=== PATIENT | female | born 1940 | race Caucasian/White ===

== ENCOUNTER → 2018-10-17 | Outpatient (CLI) | payer MEDICARE, BC, OTHER ==
[~2018-10-17] MED LIST: ALDACTIZIDE 25-1 TAB PO; ASPIRIN ADULT L81 M1 PO; ASPIRIN80 MG PO; ASPIRIN81 M1; ASPIRIN81 M1 PO; ATIVAN1 MG PO; B12,B-12,B 12500 MC1 PO; BIAXIN500 MG PO; CARVEDILOL12.5 MG PO; CLARITIN10 MG PO; COREG12.5 MG; COREG12.5 MG PO; CYMBALTA60 MG; CYMBALTA60 MG PO; Coumadin5 MG PO; FOSAMAX70 MG; IRON; LIPITOR80 MG; LIPITOR80 MG PO; LISINOPRIL10 MG; LISINOPRIL20 MG PO; MEDROL DOSEPAK4 MG PO; PERCOCET 325 MG1 TA2 PO; PERCOCET 325 MG1 TA4 PO; PROTONIX40 M1 PO; PROTONIX40 MG; PROTONIX40 MG PO; REGLAN10 MG PO; SOMA350 MG PO; SPIRIVA18 MCG PO; VICODIN 500 MG-1 TAB PO; VITAMIN B121000 MC2; VITAMIN C500 MG; VITAMIN D32000 IU; WALKER; ZESTRIL20 MG PO
== END | disposition home or self-care (01) ==
LOC: MRI 13:00
DX: I65.23 Occlusion and stenosis of bilateral carotid arteries (principal); Z72.0 Tobacco use; I10 Essential (primary) hypertension; R42 Dizziness and giddiness; R55 Syncope and collapse

== ENCOUNTER 2020-05-08 13:58 | Inpatient (IN) | payer MEDICARE, BC, OTHER ==
[~2020-05-08] VITALS: Ht 165.1 cm; Wt 81.6 kg
[2020-05-08] VITALS (19 sets, daily range): BP systolic 80–161; BP diastolic 41–82
[2020-05-08 15:09] LABS: HEMATOCRIT 24.4 % (37.0-47.0); MEAN CELL VOLUME 74.2 fl (81.0-99.0); MEAN CORPUSCULAR HGB 20.7 pg (27.0-31.0); MEAN CORPUSCULAR HGB CONC 27.9 g/dl (33.0-37.0); MEAN PLATELET VOLUME 8.9 fl (9.6-12.3); NUCLEATED RED BLOOD CELL 0.4 % (0.0-0.0); PLATELET COUNT AUTOMATED 207 10*3/uL (130-400); RED BLOOD COUNT 3.29 10*6/uL (4.10-5.10); RED CELL DISTRI WIDTH 17.9 % (0-14.5); WHITE BLOOD COUNT 5.4 10*3/uL (4.8-10.8)
--- NOTE | 2020-05-08 15:12 | NUR ---
LIZA, GRANDDAUGHTER, CELLPHONE: [phone]
[2020-05-08 15:21] LABS: ACT PARTIAL THROMBO TIME 21.6 SECONDS (20.0-32.1)
[2020-05-08 15:27] LABS: ALKALINE PHOSPHATASE 48 U/L (45-117); BUN 19 mg/dl (7-24); CHLORIDE 100 mmol/L (98-107); CREATININE 1.03 mg/dL (0.55-1.02); LIPASE 88 U/L (73-393); MICROCYTOSIS SLIGHT; PLATELET SUFFICIENCY NORMAL (NORMAL); POTASSIUM 3.5 mmol/L (3.5-5.1); SGOT/AST 14 IU/L (3-35); SGPT/ALT 11 U/L (12-78); SODIUM 137 mmol/L (136-145); TOTAL CELLS COUNTED 100 #CELLS; TOTAL PROTEIN 7.2 gm/dL (6.4-8.2)
[2020-05-08 15:28] LABS: TROPONIN I < 0.015 ng/ml (<0.045)
--- NOTE | 2020-05-08 18:15 | NUR ---
PATIENT REFUSING TO HAVE TOE PHOTOGRAPHED D/T PAIN
--- NOTE | 2020-05-08 18:17 | NUR ---
BLOOD TRANSFUSION TITRATED TO 125 ML/HR
--- NOTE | 2020-05-08 19:04 | NUR ---
SURGERY ON UNIT FOR PATIENT TRANSFER TO SURGERY
--- NOTE | 2020-05-08 21:54 | NUR ---
A 79, admitted to 4E, under the services of ISREAL Mercedes DO with a diagnosis of ANEMIA, FRACTURE OF LEFT GREAT TOE. Chief complaint is FALL. Patient arrived via bed from ER. Monitor applied. Initial assessment completed. Vital signs taken and recorded. ISREAL MERCEDES DO notified of admission to the unit. Orders received. See assessment for past medical history, medications and allergies. Patient and/or family oriented to unit. [facility] visitation policy reviewed. Clothing/patient valuable form completed. JACQUELINE DAVIDSON
--- NOTE | 2020-05-08 22:00 | NUR ---
PT IS REFUSING NURSE TO CHECK FOR ANY ADDITIONAL WOUNDS. STATES THAT SHE IS HURTING TOO MUCH. WILL TRY IN THE MORNING
[2020-05-08] MEDS ORDERED: BUSPIRONE HCL10 MG PO (22:12)
[2020-05-08] MEDS ORDERED: CARAFATE1 G1 PO (22:15)
[2020-05-08] MEDS ORDERED: TRELEGY ELLIPT1 EACH INH (22:16)
[2020-05-08] MEDS ORDERED: QUETIAPINE FUMA50 M1 PO (22:17)
[2020-05-08] MEDS ORDERED: TIZANIDINE HCL4 MG PO (22:18)
--- NOTE | 2020-05-08 23:00 | NUR ---
PT SLEEPING COMFORTABLY AT THIS TIME. O2 INTACT, CALL LIGHT IN REACH
[2020-05-08 23:50] LABS: BASO % 0.3 % (0.0-1.0); EOS % 0.4 % (1.0-4.0); HEMATOCRIT 31.1 % (37.0-47.0); LYMPH # 1.4 10*3/uL (1.3-4.4); LYMPH % 18.9 % (27.0-41.0); MEAN CORPUSCULAR HGB CONC 28.9 g/dl (33.0-37.0); MEAN PLATELET VOLUME 8.9 fl (9.6-12.3); MONO # 0.4 10*3/uL (0.1-1.0); MONO % 5.2 % (3.0-9.0); NEUT # 5.4 10*3/uL (2.3-7.9); NEUT % 74.9 % (47.0-73.0); NUCLEATED RED BLOOD CELL 0.3 % (0.0-0.0); PLATELET COUNT AUTOMATED 173 10*3/uL (130-400); RED BLOOD COUNT 4.09 10*6/uL (4.10-5.10); RED CELL DISTRI WIDTH 17.3 % (0-14.5); WHITE BLOOD COUNT 7.2 10*3/uL (4.8-10.8)
[2020-05-09] VITALS: BP 119/56
--- NOTE | 2020-05-09 01:20 | NUR ---
Pt found on a 3L simple face mask. Pt immediately switched to a 3L NC because a simple mask must run on 6L-10L. SpO2 95%. Pt was arousable.
--- NOTE | 2020-05-09 01:55 | NUR ---
MORPHINE GIVEN PER PT REQUEST FOR 10/10 PAIN IN LEFT GREAT TOE. WILL MONITOR
--- NOTE | 2020-05-09 02:55 | NUR ---
PER PT, MORPHINE HELPED A LITTLE
--- NOTE | 2020-05-09 04:29 | NUR ---
PT STATES THAT HER TOE IS STILL HURTING BAD. NORCO GIVEN PER ORDER. WILL MONITOR
--- NOTE | 2020-05-09 04:49 | NUR ---
PT VOMITING AT THIS TIME. ZOFRAN GIVEN PER ORDER. WILL MONITOR
--- NOTE | 2020-05-09 05:29 | NUR ---
NORCO AND ZOFRAN APPEAR EFFECTIVE, PT ASLEEP
--- NOTE | 2020-05-09 06:00 | NUR ---
IN TO ASSESS PT. AT THIS TIME, PT STATES SHE IS IN TOO MUCH PAIN AND TOO NAUSEOUS FOR NURSE TO CHECK FOR WOUNDS.
[2020-05-09 06:05] LABS: BASO % 0.3 % (0.0-1.0); EOS # 0.1 10*3/uL (0.0-0.4); EOS % 0.9 % (1.0-4.0); HEMATOCRIT 31.5 % (37.0-47.0); LYMPH # 1.1 10*3/uL (1.3-4.4); LYMPH % 13.5 % (27.0-41.0); MEAN CELL VOLUME 74.5 fl (81.0-99.0); MEAN CORPUSCULAR HGB 21.7 pg (27.0-31.0); MEAN CORPUSCULAR HGB CONC 29.2 g/dl (33.0-37.0); MEAN PLATELET VOLUME 9.3 fl (9.6-12.3); MONO # 0.5 10*3/uL (0.1-1.0); NEUT # 6.2 10*3/uL (2.3-7.9); NEUT % 78.9 % (47.0-73.0); NUCLEATED RED BLOOD CELL 0.1 10*3/uL (0.0-0.0); NUCLEATED RED BLOOD CELL 0.6 % (0.0-0.0); PLATELET COUNT AUTOMATED 180 10*3/uL (130-400); RED BLOOD COUNT 4.23 10*6/uL (4.10-5.10); RED CELL DISTRI WIDTH 17.3 % (0-14.5); WHITE BLOOD COUNT 7.8 10*3/uL (4.8-10.8)
[2020-05-09 06:24] LABS: ACT PARTIAL THROMBO TIME 23.5 SECONDS (20.0-32.1)
[2020-05-09 06:25] LABS: BUN 13 mg/dl (7-24); CHLORIDE 102 mmol/L (98-107); SODIUM 134 mmol/L (136-145)
[2020-05-09 06:29] LABS: ALKALINE PHOSPHATASE 56 U/L (45-117); CREATININE 0.72 mg/dL (0.55-1.02); SGOT/AST 15 IU/L (3-35); SGPT/ALT 10 U/L (12-78); TOTAL PROTEIN 7.1 gm/dL (6.4-8.2)
--- NOTE | 2020-05-09 06:40 | NUR ---
PT MEDICATED WITH MORPHINE FOR COMPLAINTS OF 10/10 PAIN IN LEFT FOOT
--- NOTE | 2020-05-09 07:00 | NUR ---
ARRIVED ON SHIFT, REPORT RECEIVED FROM OFFGOING NURSE, ASSUMED CARE OF PATIENT.
[2020-05-09 07:19] LABS: VITAMIN D, 25-HYDROXY 9.1 ng/mL (30-100)
--- NOTE | 2020-05-09 07:30 | NUR ---
ARRIVED ON SHIFT, INTRODUCED SELF TO PATIENT, BED IN LOW POSITION, WHEEL LOCKS ENGAGED, SIDE RAILS UP X 2 FOR TURNING AND REPOSITIONING, PATIENT REFUSES TO TURN, R/T PAIN. BED ALARM CHOIR ACCOMPANIST LIGHT WITHIN REACH, NO NEEDS VOICED AT THIS TIME WHITE BOARD UPDATED.
[2020-05-09 08:00] VITALS: BP 139/61
--- NOTE | 2020-05-09 08:11 | NUR ---
CALL PLACED TO DR. LITTLE, ADVISED OF CONSULT.
--- NOTE | 2020-05-09 08:20 | NUR ---
PATIENT CONTINUES TO C/O OF PAIN, DESPITE HAVING NORCO AND MORPHINE, SHE VERSED THE NORCO DOESNT HELP AT ALL AND THE MORPHINE ONLY WORKS X 15 MINUTES, CALL PLACED TO HOSPITALIST LINE SPOKE TO DR. DUNN, SHE VERSED SHE WOULD CHANGE MEDICATION.
--- NOTE | 2020-05-09 08:32 | NUR ---
ONE TIME DOSE DILAUDID GIVEN PER ORDERS.
--- NOTE | 2020-05-09 09:32 | NUR ---
PATIENT REPORTS THAT DILAUDID WAS HELPFUL, BUT STILL HAVING PAIN.
--- NOTE | 2020-05-09 10:32 | NUR ---
PERCOCET GIVEN FOR LEFT FOOT PAIN 05/03
[2020-05-09] MEDS ORDERED: CARVEDILOL3.125 MG PO (11:06)
[2020-05-09] MEDS ORDERED: ALDACTAZIDE 251 EACH PO (11:12)
--- NOTE | 2020-05-09 11:30 | NUR ---
IN TO SEE PATIENT TO REASSESS PERCOCET GIVEN X 1 HOUR AGO, PATIENT WRETCING, AND HAD YELLOW/GREEN LIQUID EMESIS,MEDICATED WITH ZOFRAN ORDERED, NOTIFIED MONA FRIAS, OF EMESIS AND PATIENTS, ONGOING C/O PAIN. SHE VERSED SHE WILL ORDER ROUTINE ZOFRAN.
[2020-05-09 12:00] VITALS: BP 119/56
[2020-05-09 13:21] LABS: CLARITY CLEAR (CLEAR); COLOR YELLOW (YELLOW)
[2020-05-09 13:22] LABS: BILIRUBIN NEGATIVE (NEGATIVE); BLOOD 1+ (NEGATIVE); GLUCOSE NEGATIVE (NEGATIVE); KETONE TRACE (NEGATIVE); LEUKO ESTERASE 1+ (NEGATIVE); NITRITE NEGATIVE (NEGATIVE); PH 6.5 (5.0-9.0); SPECIFIC GRAVITY 1.015 (1.005-1.030); UROBILINOGEN 0.2 E.U./dl (0.2-1.0)
--- NOTE | 2020-05-09 13:32 | NUR ---
Shift chart check completed.
[2020-05-09 13:56] LABS: BACTERIA TRACE; EPITHELIAL CELLS 0-2; WBC 0-2 wbc/hpf (0-5)
[2020-05-09 16:00] VITALS: BP 134/54
--- NOTE | 2020-05-09 16:48 | NUR ---
PATIENT C/O OF LEFT FOOT PAIN AND HEADACHE MEDICATED WITH PERCOCET ORDERED, UPDATED WHITE BOARD.
--- NOTE | 2020-05-09 19:00 | NUR ---
REPORT RECEIVED. PT LYING IN BED WITH EYES CLOSED. NO S/S OF DISTRESS. CALL LIGHT IN REACH
--- NOTE | 2020-05-09 19:53 | NUR ---
24 HR chart check completed.
[2020-05-09 20:00] VITALS: BP 125/58
--- NOTE | 2020-05-09 22:15 | NUR ---
MORPHINE GIVEN PER ORDER FOR COMPLAINTS OF 10/10 PAIN IN LEFT FOOT. WILL MONITOR
--- NOTE | 2020-05-09 23:15 | NUR ---
PER PT, MORPHINE HELPED A LITTLE BIT FOR PAIN IN FOOT
--- NOTE | 2020-05-09 23:38 | NUR ---
SCHEDULED ZOFRAN AND ULTRAM GIVEN FOR PAIN AND NAUSEA. WILL MONITOR
[2020-05-10] VITALS (9 sets, daily range): BP systolic 83–168; BP diastolic 53–79
--- NOTE | 2020-05-10 00:30 | NUR ---
SCHEDULED ZOFRAN AND ULTRAM APPEAR EFFECTIVE, PT ASLEEP
--- NOTE | 2020-05-10 03:30 | NUR ---
PT ASLEEP, CALL LIGHT IN REACH
[2020-05-10 05:56] LABS: ALBUMIN 2.8 gm/dl (3.1-4.5); ALKALINE PHOSPHATASE 57 U/L (45-117); BUN 8 mg/dl (7-24); CHLORIDE 101 mmol/L (98-107); CREATININE 0.61 mg/dL (0.55-1.02); POTASSIUM 3.4 mmol/L (3.5-5.1); SGOT/AST 14 IU/L (3-35); SGPT/ALT 13 U/L (12-78); SODIUM 132 mmol/L (136-145); TOTAL PROTEIN 7.2 gm/dL (6.4-8.2)
[2020-05-10 06:13] LABS: BASO % 0.5 % (0.0-1.0); EOS # 0.1 10*3/uL (0.0-0.4); EOS % 0.7 % (1.0-4.0); HEMATOCRIT 31.7 % (37.0-47.0); LYMPH # 1.2 10*3/uL (1.3-4.4); LYMPH % 13.2 % (27.0-41.0); MEAN CELL VOLUME 74.2 fl (81.0-99.0); MEAN CORPUSCULAR HGB CONC 29.7 g/dl (33.0-37.0); MEAN PLATELET VOLUME 9.4 fl (9.6-12.3); MONO # 0.7 10*3/uL (0.1-1.0); MONO % 7.8 % (3.0-9.0); NEUT # 6.9 10*3/uL (2.3-7.9); NEUT % 77.3 % (47.0-73.0); NUCLEATED RED BLOOD CELL 0.2 % (0.0-0.0); PLATELET COUNT AUTOMATED 191 10*3/uL (130-400); RED BLOOD COUNT 4.27 10*6/uL (4.10-5.10); RED CELL DISTRI WIDTH 18.1 % (0-14.5); WHITE BLOOD COUNT 8.9 10*3/uL (4.8-10.8)
--- NOTE | 2020-05-10 07:30 | NUR ---
PT RESTING IN BED. VOICES NO CONCERNS AT THIS TIME. RESPS EASY AND NON LABORED. NO S/S OF DISTRESS NOTED. VSS. WHITE BOARD UPADTED. POC DISCUSSED W PT. A/O X3. LUMBEE. L GREAT TOE DRESSING C/D/I, PT DENIES ANY NUMBNESS/TINGLING IN EXREMITY. WILL CONTINUE TO MONITOR. CALL LIGHT WITHIN REACH.
--- NOTE | 2020-05-10 09:41 | NUR ---
FAMILY UPDATED ON POC. QUESTIONS ANSWERED.
--- NOTE | 2020-05-10 10:43 | NUR ---
PT TAKEN DOWN FOR EDG
--- NOTE | 2020-05-10 10:45 | NUR ---
OT NOTE Occupational therapy order received and chart reviewed. Patient out of the room at this time for her EGD. Will check back at a later date for completion of an OT evaluation. Thank you. Paula Ac, OTR/L
--- NOTE | 2020-05-10 10:58 | NUR ---
PHYSICAL THERAPY Eval received chart reviewed attempted to see pt for assessment unavailable at this time as out of room for procedure/EGD. Will follow Jojo Ramsey PT
--- NOTE | 2020-05-10 13:51 | NUR ---
PT BACK FROM EGD. VSS. RESPS EASY AND NON LABORED. WILL CONTINUE TO MONITOR.
--- NOTE | 2020-05-10 14:10 | NUR ---
Occupational Therapy evaluation completed on four with full evaluation to follow. Recommend occupational therapy per plan of care and SNF upon discharge. Spoke with case management following the OT evaluation to discuss patient's functional status and discharge plans. Patient was unable to complete a full sit/stand from the EOB and maintain LLE NWB. Patient is adamantly refusing SNF and home health services stating she will return home with family with no further rehab. Pending patient's progression with functional activity, patient may require an ambulance for returning home, possible julia lift, possible slide board pending transfer progression, a FWW, and a BSC. Patient stating she also does not have a w/c because it does not "fit" into the home. Patient also has 5 steps to enter the home. Will continue to address patient's functional activity with ADLs and transfers. Thank you for the referral. Paula Ac, OTR/L
--- NOTE | 2020-05-10 15:09 | NUR ---
Shirt Folder in to talk to patient. Patient states lives at HOME with DAUGHTER AND GRANDSON. There are 5 steps in the home. [facility]ician[facility] none at present Patient's level of ADLs: MODERATE ASSIST Patient has working utilities: all working DME: none Follow-up physician's appointment after d/c: will be made by [facility] nurse director up discharge Does patient want to access PORTAL?: no Discharge plan discussed with patient, she states she lives at home with her daughter and grandson, she stated she was getting around fine until she had a fall at home, discussed with her rehab suggesting she go to a short term snf for 5 days of rehab and 24 hour care prior to returning home, she stated she was not going to any facility that she is returning home when discharged, discussed with her not being able to care for herself and a short term skilled would help her become independent and be able to care for herself at home, she insisted she was returning home, she stated she would be willing for home health to follow her at home, asked if it would be ok for case management to talk with patient's daughter regarding discharge plans, patient was agreeable in talking with her daughter, case management will follow. CHIDI PITTMAN
--- NOTE | 2020-05-10 15:33 | NUR ---
PHYSICAL THERAPY Physical Therapy evaluation completed on 4th floor with full evaluation to follow. Recommend physical therapy per plan of care and SNF upon discharge if refused pt will require 24hr care w full services. Thank you for this referral. Artie Gutiérrez SPT Jojo Ramsey PT
--- NOTE | 2020-05-10 15:50 | NUR ---
PT C/O 5/10 THROBBING LEFT LEG PAIN. MEDICATED PER ORDER. WILL MONITOR FOR RELIEF. RESPS EASY AND NON LABORED. RESTING IN BED WATCHING TV. CALL LIGHT WITHIN REACH.
--- NOTE | 2020-05-10 16:02 | NUR ---
PHYSICAL THERAPY Physical Therapy evaluation completed on 4th floor with full evaluation to follow. Recommend physical therapy per plan of care and SNF upon discharge. However currently pt is refusing any therapy/rehab at this time. Spoke with Case Mangement reg concerns as unable to stand maintain NWB of LLE. Pt has 5 steps to enter home would require ambulance service for entrance. Pending progress may need w/c,hospital bed,slide board,FWW (only has rollator) or julia however limited assessment due to pain and nausea (pt dry heaving with activity). Pt states she has no room for w/c or equipment. Will continue to assess/monitor level of activity and assist. Thank you for this referral. Jojo Ramsey PT
--- NOTE | 2020-05-10 16:18 | NUR ---
DR ALVES ANSWERING SERVICE NOTIFIED OF NEW CONSULT
--- NOTE | 2020-05-10 16:45 | NUR ---
MEDICATION EFFECTIVE PER PT
--- NOTE | 2020-05-10 23:43 | NUR ---
PATIENT RESTING IN BED WITH NO NEEDS MADE. DENIES NAUSEA AT THIS TIME. REFUSING ZOFRAN. PATIENT CONFUSED TO PLACE WHEN SHE WOKE UP. REORIENTED. BED ALARM ON. BED IN LOWEST POSITION, CALL LIGHT IN REACH
[2020-05-11] VITALS: BP 111/64
--- NOTE | 2020-05-11 01:25 | NUR ---
PATIENT RESTING IN BED WITH NO S/S OF DISTRESS. RESPS EASY AND REGULAR. BED IN LOWEST POSITION, BED ALARM ON, CALL LIGHT IN REACH
--- NOTE | 2020-05-11 06:02 | NUR ---
PATIENT REFUSING ZOFRAN. DENIES NEEDS. ENCOURAGED TO TURN COUGH AND DEEP BREATH. BED ALARM ON, BED IN LOW POSITION, CALL LIGHT IN REACH
[2020-05-11 07:51] LABS: BASO % 0.5 % (0.0-1.0); EOS % 0.5 % (1.0-4.0); HEMATOCRIT 30.4 % (37.0-47.0); LYMPH # 1.1 10*3/uL (1.3-4.4); LYMPH % 18.6 % (27.0-41.0); MEAN CELL VOLUME 74.5 fl (81.0-99.0); MEAN CORPUSCULAR HGB 21.6 pg (27.0-31.0); MEAN CORPUSCULAR HGB CONC 28.9 g/dl (33.0-37.0); MEAN PLATELET VOLUME 9.5 fl (9.6-12.3); MONO # 0.6 10*3/uL (0.1-1.0); MONO % 9.7 % (3.0-9.0); NEUT # 4.3 10*3/uL (2.3-7.9); NEUT % 70.4 % (47.0-73.0); PLATELET COUNT AUTOMATED 175 10*3/uL (130-400); RED BLOOD COUNT 4.08 10*6/uL (4.10-5.10); RED CELL DISTRI WIDTH 18.1 % (0-14.5); WHITE BLOOD COUNT 6.1 10*3/uL (4.8-10.8)
--- NOTE | 2020-05-11 07:59 | NUR ---
PT RESTING IN BED. RESPS EASY AND NON LABORED. VSS. WHITE BOARD UPDATED. POC DISCUSSED PT. A/O X3. STATES HER LEFT FOOT IS ACHING 03/03. MEDICATED PER ORDER. WILL MONITOR FOR RELIEF. VOICES NO OTHER CONCERNS AT THIS TIME. CALL LIGHT WITHIN REACH. BED ALARM ON.
[2020-05-11 08:00] VITALS: BP 150/76
--- NOTE | 2020-05-11 08:00 | NUR ---
Called and spoke with patients daughter, Tamiko, with patients permission. Described that patient is NWB on left foot and therapy described a 2 person max assist to get out of bed. 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 She said she would be fine, she has herself, her and son and another relative up the street. she asked for [facility] with therapy and aides.
[2020-05-11 08:08] LABS: ALBUMIN 2.5 gm/dl (3.1-4.5); ALKALINE PHOSPHATASE 57 U/L (45-117); BUN 8 mg/dl (7-24); CHLORIDE 104 mmol/L (98-107); CREATININE 0.55 mg/dL (0.55-1.02); POTASSIUM 3.6 mmol/L (3.5-5.1); SGOT/AST 28 IU/L (3-35); SGPT/ALT 11 U/L (12-78); SODIUM 135 mmol/L (136-145); TOTAL PROTEIN 6.7 gm/dL (6.4-8.2)
--- NOTE | 2020-05-11 08:30 | NUR ---
MEDICATION EFFECTIVE PER PT
--- NOTE | 2020-05-11 09:29 | NUR ---
Patient was identified by wristband & . Participated with OBSTETRICS AND GYNECOLOGY PROFESSOR 1:1 x 15 minutes starting with supine to sit x Mod A x 2 to EOB. Pt performing grooming at EOB with set up. Pt also performed towel exercises while sitting at EOB after demonstration to enhance activity tolerance x 2 sets. Continue with OT POC. Gloria FANG/Agustina
--- NOTE | 2020-05-11 09:44 | NUR ---
PHYSICAL THERAPY Patient seen this am 1;1 for therapy visit and was supine in bed upon therapist arrival. Patient identified by name / and was very [place], voicing no new c/o's at this time. OT assistant elementary teacher was present this morning for observation as patient is NWB on L LE secondary to recent toe fracture. Patient educated on safe transfer technique and importance of maintaining NWB status prior to completing supine to sit EOB with MOD A x 2. Patient tolerated several minutes static EOB sit, SBA, then performed scooting ex, requiring multiple v/c's to improve technique / performance, including visual demonstration prior to transfer. Patient also completed sit to stand transfer, use of wh walker, MAX A, demonstrating initial slow rise with only 75% NWB L LE compliance thru heel only on first attempt. Patient able to complete second trial, improving static stand tolerance to 1 minute, MAX A initial rise then CGA, demonstrating "slouched" upright posture and 100% compliance with NWB status. Patient however fatigues quickly returned to supine in bed with MAX A. and remained in bed with call light, tray table, telephone, bed alarm for safety. Will continue per POC as tolerated, total treament time 14 minutes. Tony Alexander, HAND CIGAR MAKING SUPERVISOR
--- NOTE | 2020-05-11 11:14 | NUR ---
Patient and family requesting services through [facility] upon discharge. Contacted [facility] and faxed order/referral. Notified of possible discharge tomorrow.
[2020-05-11] MEDS ORDERED: CLEOCIN HCL150 MG PO (11:37)
[2020-05-11 12:00] VITALS: BP 140/80
--- NOTE | 2020-05-11 12:37 | NUR ---
Pt was seen in OT x 15 minutes beginning with supine to sit at EOB x Mod A x 2. At EOB, pt performed grooming and applying lotion for UEs with set up. Pt engaged in "towel exercises" to enhance toleration for simple ADLs with occasional rests. No complaints, OT in place & bed alarm activated for safety. Continue with OT POC. Gloria COLLINS
[2020-05-11] MEDS ORDERED: PERCOCET 7.5 MG-325 PO (12:52)
--- NOTE | 2020-05-11 13:44 | NUR ---
PHYSICAL THERAPY Patient was resting supine in bed this pm, half asleep when approached for second therapy visit. Patient identified by name / and reports feeling very tired with very low energy. Patient stated she was too weak to attempt EOB sit this afternoon, requesting to remaine in bed to rest. Patient promised to do better tommorrow and remained in bed with call light, tray table, telephone, bed alarm for safety. Will continue per POC as tolerated. Tony Alexander, PET CARE TECHNICIAN
--- NOTE | 2020-05-11 14:01 | NUR ---
PT RESTING IN BED. VOICES NO CONCERNS. RESPS EASY AND NON LABORED. ENCOURAGED TO COUGH AND DEEP BREATHE. STILL CONTINUES TO REFUSE TO TURN Q2H. WILL CONTINUE TO MONITOR.CALL LIGHT WITHIN REACH.
--- NOTE | 2020-05-11 14:20 | NUR ---
Hep Lock discontinued. Site asymptomatic. Pressure applied. Sterile dressing applied. KARLIE HOWELL
--- NOTE | 2020-05-11 14:21 | NUR ---
DUMONT CATHETER REMOVED. PT TOLERATED WELL. TIP INSPECTED AND INTACT. LUIS A CARE PROVIDED.
[2020-05-11 16:00] VITALS: BP 129/70
[2020-05-11 20:00] VITALS: BP 139/68
--- NOTE | 2020-05-11 20:58 | NUR ---
PATIENT RESTING IN BED WITH NO NEEDS MADE. ALERT AND ORIENTED. BED IN LOW POSITION, BED ALARM ON, CALL LIGHT IN REACH
[2020-05-12] VITALS: BP 135/72
--- NOTE | 2020-05-12 01:30 | NUR ---
PATIENT WAS ASSISTED TO BSC TO HELP WITH VOIDING. PATIENT DID VOID EVEN THOUGH SHE STATED SHE DID NOT HAVE TO PRIOR. WILL MONITOR
--- NOTE | 2020-05-12 06:00 | NUR ---
PATIENT REFUSES TO TURN Q2HR. IMPORTANCE/EDUCATION PROVIDED/ PATIENT STATED SHE WAS COMFORTABLY LAYING IN HER BACK AND DIDN'T WANT TO MOVE
[2020-05-12 08:00] VITALS: BP 123/57
--- NOTE | 2020-05-12 08:00 | NUR ---
PATIENT SLEEPING NO DISTRESS NOTED.
--- NOTE | 2020-05-12 09:00 | NUR ---
MELITA HAS ROUNDED AND PATIENT IS DISCHARGED TO HOME. IV REMOVED. PATIENT STATES HER DAUGHTER CAN GET HER AFTER 3 OR 4 PM.
--- NOTE | 2020-05-12 11:21 | NUR ---
PATIENT DISCHARGED TO HOME.
--- NOTE | 2020-05-13 07:52 | NUR ---
PHYSICAL THERAPY CO-SIGN I approve of the Physical Therapy notes written above. Jojo Ramsey PT
== END 2020-05-12 11:21 | disposition home health service (06) | DRG 503 ==
LOC: ED 13:58 → 4E 17:08 → EDHOLD 17:08 → 4E 17:36
PROVIDERS: Emergency Medicine; Family Medicine; Internal Medicine; Physician Assistant; Registered Nurse; ADMIT Internal Medicine
PROC: 0QSR04Z Reposition Left Toe Phalanx with Internal Fixation Device, Open Approach (ICD-10-PCS; principal; 2020-05-08)
PROC: 30233N1 Transfusion of Nonautologous Red Blood Cells into Peripheral Vein, Percutaneous Approach (ICD-10-PCS; principal; 2020-05-08)
PROC: 0SQQ0ZZ Repair Left Toe Phalangeal Joint, Open Approach (ICD-10-PCS; 2020-05-08)
PROC: 0DB68ZX Excision of Stomach, Via Natural or Artificial Opening Endoscopic, Diagnostic (ICD-10-PCS; 2020-05-10)
DX: S92.402B Displaced unspecified fracture of left great toe, initial encounter for open fracture (principal); K29.71 Gastritis, unspecified, with bleeding; N17.0 Acute kidney failure with tubular necrosis; D62 Acute posthemorrhagic anemia; E44.0 Moderate protein-calorie malnutrition; I95.9 Hypotension, unspecified; I25.10 Atherosclerotic heart disease of native coronary artery without angina pectoris; K21.9 Gastro-esophageal reflux disease without esophagitis; F41.9 Anxiety disorder, unspecified; M19.90 Unspecified osteoarthritis, unspecified site; Z96.643 Presence of artificial hip joint, bilateral; K44.9 Diaphragmatic hernia without obstruction or gangrene; J44.9 Chronic obstructive pulmonary disease, unspecified; Z88.0 Allergy status to penicillin; Z88.8 Allergy status to other drugs, medicaments and biological substances; Z90.710 Acquired absence of both cervix and uterus; Z90.49 Acquired absence of other specified parts of digestive tract; Z95.5 Presence of coronary angioplasty implant and graft; I25.2 Old myocardial infarction; Z87.442 Personal history of urinary calculi; Z82.49 Family history of ischemic heart disease and other diseases of the circulatory system; Z09 Encounter for follow-up examination after completed treatment for conditions other than malignant neoplasm; Z86.718 Personal history of other venous thrombosis and embolism; Z79.899 Other long term (current) drug therapy; W18.39XA Other fall on same level, initial encounter; Y93.89 Activity, other specified; Y92.89 Other specified places as the place of occurrence of the external cause; Y99.8 Other external cause status

== ENCOUNTER → 2020-07-14 | Outpatient (CLI) | payer MEDICARE, BC, OTHER ==
[~2020-07-14] MED LIST changes: +ALDACTAZIDE 251 EACH PO; +BUSPIRONE HCL10 MG PO; +CARAFATE1 G1 PO; +CARVEDILOL3.125 MG PO; +CLEOCIN HCL150 MG PO; +PERCOCET 7.5 MG-325 PO; +QUETIAPINE FUMA50 M1 PO; +TIZANIDINE HCL4 MG PO; +TRELEGY ELLIPT1 EACH INH
== END | disposition home or self-care (01) ==
LOC: US 11:00
PROVIDERS: ATTEND Podiatrist Foot & Ankle Surgery
DX: I82.812 Embolism and thrombosis of superficial veins of left lower extremity (principal)

== ENCOUNTER → 2020-07-21 | Outpatient (CLI) | payer MEDICARE, BC, OTHER | END | disposition home or self-care (01) | LOC: MRI 11:00 | PROVIDERS: ATTEND Podiatrist Foot & Ankle Surgery | DX: S86.002A Unspecified injury of left Achilles tendon, initial encounter (principal); X58.XXXA Exposure to other specified factors, initial encounter; Y93.89 Activity, other specified; Y92.89 Other specified places as the place of occurrence of the external cause; Y99.8 Other external cause status ==

== ENCOUNTER 2021-01-15 10:36 | Emergency (ER) | payer MEDICARE, BC, OTHER ==
[~2021-01-15] VITALS: Ht 170.1 cm; Wt 95.3 kg
[2021-01-15 11:11] LABS: HEMATOCRIT 24.7 % (37.0-47.0); MEAN CELL VOLUME 130.7 fl (81.0-99.0); MEAN CORPUSCULAR HGB 40.7 pg (27.0-31.0); MEAN CORPUSCULAR HGB CONC 31.2 g/dl (33.0-37.0); MEAN PLATELET VOLUME 11.6 fl (9.6-12.3); NUCLEATED RED BLOOD CELL 0.2 10*3/uL (0.0-0.0); NUCLEATED RED BLOOD CELL 4.2 % (0.0-0.0); PLATELET COUNT AUTOMATED 73 10*3/uL (130-400); RED BLOOD COUNT 1.89 10*6/uL (4.10-5.10); RED CELL DISTRI WIDTH 18.3 % (0-14.5); WHITE BLOOD COUNT 4.3 10*3/uL (4.8-10.8)
[2021-01-15 11:20] LABS: CREATININE 1.48 mg/dL (0.55-1.02); POTASSIUM 3.8 mmol/L (3.5-5.1)
[2021-01-15 11:22] LABS: ACT PARTIAL THROMBO TIME 22.9 SECONDS (20.0-32.1); INTERNATIONAL NORM RATIO 1.1 (2.0-3.5)
[2021-01-15 11:29] LABS: TOTAL CELLS COUNTED 100 #CELLS
[2021-01-15 11:30] LABS: PLATELET SUFFICIENCY LOW (NORMAL)
[2021-01-15 11:31] LABS: POLYCHROMASIA SLIGHT
[2021-01-15 13:15] VITALS: BP 112/74
== END 2021-01-15 13:36 | disposition short-term general hospital (02) ==
LOC: ED 10:36
PROVIDERS: Emergency Medicine
DX: S72.362A Displaced segmental fracture of shaft of left femur, initial encounter for closed fracture (principal); M97.02XA Periprosthetic fracture around internal prosthetic left hip joint, initial encounter; J44.9 Chronic obstructive pulmonary disease, unspecified; Z88.0 Allergy status to penicillin; Z88.8 Allergy status to other drugs, medicaments and biological substances; Z79.82 Long term (current) use of aspirin; Z79.899 Other long term (current) drug therapy; Z86.718 Personal history of other venous thrombosis and embolism; W18.30XA Fall on same level, unspecified, initial encounter; Y93.89 Activity, other specified; Y92.89 Other specified places as the place of occurrence of the external cause; Y99.9 Unspecified external cause status

== ENCOUNTER 2021-02-03 13:34 | Emergency (ER) | payer MEDICARE, BC, OTHER ==
[~2021-02-03] VITALS: Wt 73.0 kg
[2021-02-03 14:09] VITALS: BP 107/47
[2021-02-03 14:14] LABS: MEAN CELL VOLUME 108.9 fl (81.0-99.0); MEAN CORPUSCULAR HGB 34.6 pg (27.0-31.0); MEAN CORPUSCULAR HGB CONC 31.8 g/dl (33.0-37.0); MEAN PLATELET VOLUME 10.5 fl (9.6-12.3); NUCLEATED RED BLOOD CELL 0.4 % (0.0-0.0); PLATELET COUNT AUTOMATED 171 10*3/uL (130-400); RED BLOOD COUNT 2.57 10*6/uL (4.10-5.10); WHITE BLOOD COUNT 4.5 10*3/uL (4.8-10.8)
[2021-02-03 14:24] LABS: ACT PARTIAL THROMBO TIME 23.6 SECONDS (20.0-32.1)
[2021-02-03 14:31] LABS: ALKALINE PHOSPHATASE 146 U/L (45-117); BUN 10 mg/dl (7-24); CHLORIDE 95 mmol/L (98-107); CREATININE 0.61 mg/dL (0.55-1.02); POTASSIUM 2.8 mmol/L (3.5-5.1); SGOT/AST 20 IU/L (3-35); SGPT/ALT 12 U/L (12-78); SODIUM 130 mmol/L (136-145); TOTAL PROTEIN 6.1 gm/dL (6.4-8.2); TROPONIN I 0.027 ng/ml (<0.045)
[2021-02-03 15:15] LABS: BASOPHILS 2 % (0-1); PLATELET SUFFICIENCY NORMAL (NORMAL); TOTAL CELLS COUNTED 100 #CELLS
[2021-02-03 15:17] LABS: BURR CELLS FEW
== END 2021-02-03 19:25 ==
LOC: ED 13:34
PROVIDERS: Emergency Medicine
DX: E87.6 Hypokalemia (principal); F41.9 Anxiety disorder, unspecified; I25.10 Atherosclerotic heart disease of native coronary artery without angina pectoris; J44.9 Chronic obstructive pulmonary disease, unspecified; E78.5 Hyperlipidemia, unspecified; Z96.643 Presence of artificial hip joint, bilateral; Z88.0 Allergy status to penicillin; Z88.8 Allergy status to other drugs, medicaments and biological substances; Z79.899 Other long term (current) drug therapy; Z79.82 Long term (current) use of aspirin; Z90.711 Acquired absence of uterus with remaining cervical stump; Z98.890 Other specified postprocedural states

== ENCOUNTER → 2021-02-17 | Outpatient (CLI) | payer MEDICARE, BC, OTHER | END | disposition home or self-care (01) | LOC: CARD 01:20 | PROVIDERS: ATTEND Internal Medicine | DX: R42 Dizziness and giddiness (principal); I05.8 Other rheumatic mitral valve diseases ==

== ENCOUNTER 2022-09-26 17:56 | Inpatient (IN) | payer MEDICARE, BC, OTHER ==
[~2022-09-26] VITALS: Ht 165.1 cm; Wt 93.0 kg
[~2022-09-26 17:56] MED LIST changes: +GABAPENTIN100 M2 PO; +ZOLOFT25 MG PO
[2022-09-26 18:17] VITALS: BP 145/76
[2022-09-26 20:53] LABS: BASO % 0.8 % (0.0-1.0); EOS % 0.6 % (1.0-4.0); HEMATOCRIT 36.1 % (37.0-47.0); LYMPH # 2.2 10*3/uL (1.3-4.4); MEAN CELL VOLUME 91.2 fl (81.0-99.0); MEAN CORPUSCULAR HGB 27.8 pg (27.0-31.0); MEAN CORPUSCULAR HGB CONC 30.5 g/dl (33.0-37.0); MEAN PLATELET VOLUME 8.8 fl (9.6-12.3); MONO # 0.5 10*3/uL (0.1-1.0); MONO % 9.1 % (3.0-9.0); NEUT # 2.3 10*3/uL (2.3-7.9); NEUT % 45.5 % (47.0-73.0); PLATELET COUNT AUTOMATED 275 10*3/uL (130-400); RED BLOOD COUNT 3.96 10*6/uL (4.10-5.10); RED CELL DISTRI WIDTH 15.7 % (0-14.5)
[2022-09-26 21:10] LABS: ALKALINE PHOSPHATASE 75 U/L (46-116); BUN 15 mg/dl (9-23); CHLORIDE 103 mmol/L (98-107); TOTAL PROTEIN 6.9 gm/dL (6.0-8.0)
[2022-09-26 21:12] LABS: SGPT/ALT < 7 U/L (10-49)
[2022-09-26 22:37] LABS: BILIRUBIN Negative (Negative); BLOOD Negative (Negative); CLARITY Clear (Clear); COLOR Yellow (Yellow); GLUCOSE Negative (Negative); KETONE Negative (Negative); LEUKO ESTERASE Trace (Negative); NITRITE Negative (Negative); SPECIFIC GRAVITY 1.015 (1.001-1.030); UROBILINOGEN 0.2 E.U./dl (0.0-1.0)
[2022-09-26 22:38] LABS: PH 8.5 (4.5-8.0)
[2022-09-26] MEDS ORDERED: KEPPRA XR500 MG PO (22:43)
[2022-09-26] MEDS ORDERED: SEROQUEL50 MG PO (22:44)
[2022-09-26] MEDS ORDERED: ATARAX,VISTARIL50 MG PO (22:44)
[2022-09-26 22:45] LABS: BACTERIA 3+
[2022-09-26] MEDS ORDERED: CARVEDILOL12.5 MG PO (22:45)
[2022-09-27 00:50] VITALS: BP 163/63
[2022-09-27] MEDS ORDERED: PROTONIX40 MG PO (01:04)
[2022-09-27 03:59] VITALS: BP 158/88
[2022-09-27 04:35] VITALS: BP 162/84
[2022-09-27 08:35] VITALS: BP 166/92
[2022-09-27 09:20] LABS: VITAMIN D, 25-HYDROXY 21.1 ng/mL (30-100)
[2022-09-27 12:00] VITALS: BP 150/74
[2022-09-27 16:00] VITALS: BP 152/76
[2022-09-28] VITALS: BP 130/66
[2022-09-28 08:00] VITALS: BP 150/66
[2022-09-28] MEDS ORDERED: VITAMIN B-12100 MCG PO (11:37)
[2022-09-28] MEDS ORDERED: OYSTER SHELL 51 EAC4 PO (11:37)
[2022-09-28] MEDS ORDERED: MACROBID100 M1 PO (11:39)
== END 2022-09-28 15:10 | DRG 554 ==
LOC: ED 17:56 → EDHOLD 20:50 → 5E 20:50
PROVIDERS: Physician Assistant; Student in an Organized Health Care Education/Training Program; ADMIT Internal Medicine; ATTEND Internal Medicine
DX: M17.0 Bilateral primary osteoarthritis of knee (principal); N39.0 Urinary tract infection, site not specified; R26.2 Difficulty in walking, not elsewhere classified; F41.9 Anxiety disorder, unspecified; J44.9 Chronic obstructive pulmonary disease, unspecified; Z96.643 Presence of artificial hip joint, bilateral; D64.9 Anemia, unspecified; M85.80 Other specified disorders of bone density and structure, unspecified site; I25.10 Atherosclerotic heart disease of native coronary artery without angina pectoris; E78.5 Hyperlipidemia, unspecified; E53.8 Deficiency of other specified B group vitamins; E55.9 Vitamin D deficiency, unspecified; A49.9 Bacterial infection, unspecified; Z88.0 Allergy status to penicillin; Z90.49 Acquired absence of other specified parts of digestive tract; Z90.710 Acquired absence of both cervix and uterus; Z86.718 Personal history of other venous thrombosis and embolism; I25.2 Old myocardial infarction; Z82.49 Family history of ischemic heart disease and other diseases of the circulatory system

== ENCOUNTER → 2022-10-20 | Outpatient (CLI) | payer MEDICARE, BC, OTHER ==
[~2022-10-20] MED LIST changes: +ATARAX,VISTARIL50 MG PO; +KEPPRA XR500 MG PO; +MACROBID100 M1 PO; +OYSTER SHELL 51 EAC4 PO; +SEROQUEL50 MG PO; +VITAMIN B-12100 MCG PO
== END | disposition home or self-care (01) ==
LOC: ORTHO 01:02
PROVIDERS: ATTEND Orthopaedic Surgery
DX: M17.12 Unilateral primary osteoarthritis, left knee (principal); M25.562 Pain in left knee

== ENCOUNTER 2022-12-26 11:45 | Emergency (ER) | payer MEDICARE, BC, OTHER ==
[2022-12-26] MEDS ORDERED: LIPITOR80 MG PO (12:22)
[2022-12-26] MEDS ORDERED: ASPIRIN81 M1 PO (12:22)
[2022-12-26] MEDS ORDERED: BUSPIRONE10 MG PO (12:23)
[2022-12-26] MEDS ORDERED: GABAPENTIN100 M2 PO (12:24)
[2022-12-26] MEDS ORDERED: CARVEDILOL12.5 MG PO (12:24)
[2022-12-26] MEDS ORDERED: CYMBALTA60 MG PO (12:24)
[2022-12-26] MEDS ORDERED: HYDROXYZINE HCL25 MG PO (12:25)
[2022-12-26] MEDS ORDERED: LEVETIRACETAM500 MG PO (12:25)
[2022-12-26] MEDS ORDERED: SEROQUEL50 MG PO (12:26)
[2022-12-26] MEDS ORDERED: PROTONIX40 MG PO (12:26)
[2022-12-26] MEDS ORDERED: ZOLOFT25 MG PO (12:27)
[2022-12-26] MEDS ORDERED: Carafate1 GM PO (12:28)
[2022-12-26] MEDS ORDERED: TIZANIDINE HCL2 M1 PO (12:28)
[2022-12-26 12:32] LABS: BASO % 0.8 % (0.0-1.0); EOS # 0.1 10*3/uL (0.0-0.4); EOS % 2.4 % (1.0-4.0); HEMATOCRIT 35.6 % (37.0-47.0); LYMPH # 1.3 10*3/uL (1.3-4.4); LYMPH % 25.4 % (27.0-41.0); MEAN CELL VOLUME 85.4 fl (81.0-99.0); MEAN CORPUSCULAR HGB 25.2 pg (27.0-31.0); MEAN CORPUSCULAR HGB CONC 29.5 g/dl (33.0-37.0); MEAN PLATELET VOLUME 9.1 fl (9.6-12.3); MONO # 0.4 10*3/uL (0.1-1.0); MONO % 7.9 % (3.0-9.0); NEUT # 3.1 10*3/uL (2.3-7.9); NEUT % 63.3 % (47.0-73.0); PLATELET COUNT AUTOMATED 304 10*3/uL (130-400); RED BLOOD COUNT 4.17 10*6/uL (4.10-5.10); RED CELL DISTRI WIDTH 18.1 % (0-14.5); WHITE BLOOD COUNT 4.9 10*3/uL (4.8-10.8)
[2022-12-26 12:47] LABS: ALKALINE PHOSPHATASE 101 U/L (46-116); BUN 8 mg/dl (9-23); CHLORIDE 104 mmol/L (98-107); POTASSIUM 4.1 mmol/L (3.4-5.1); TOTAL PROTEIN 6.8 gm/dL (6.0-8.0)
[2022-12-26 12:51] LABS: SGPT/ALT < 7 U/L (10-49)
[2022-12-26 13:07] VITALS: BP 161/72
[2022-12-26] MEDS ORDERED: COREG12.5 M1 PO (14:36)
== END 2022-12-26 15:00 | disposition home or self-care (01) ==
LOC: ED 11:45
PROVIDERS: Nurse Practitioner Family
DX: R03.0 Elevated blood-pressure reading, without diagnosis of hypertension (principal); R42 Dizziness and giddiness; Z76.0 Encounter for issue of repeat prescription; I25.10 Atherosclerotic heart disease of native coronary artery without angina pectoris; I25.2 Old myocardial infarction; I10 Essential (primary) hypertension; F41.9 Anxiety disorder, unspecified; M19.90 Unspecified osteoarthritis, unspecified site; E78.00 Pure hypercholesterolemia, unspecified; D64.9 Anemia, unspecified; Z88.0 Allergy status to penicillin; Z90.710 Acquired absence of both cervix and uterus; Z90.49 Acquired absence of other specified parts of digestive tract; Z98.890 Other specified postprocedural states

== ENCOUNTER 2023-03-15 14:01 | Emergency (ER) | payer MEDICARE, BC, OTHER ==
[~2023-03-15] VITALS: Wt 98.4 kg
[~2023-03-15 14:01] MED LIST changes: +BUSPIRONE10 MG PO; +COREG12.5 M1 PO; +Carafate1 GM PO; +HYDROXYZINE HCL25 MG PO; +LEVETIRACETAM500 MG PO; +TIZANIDINE HCL2 M1 PO
[2023-03-15 14:37] LABS: BASO % 0.5 % (0.0-1.0); EOS % 0.5 % (1.0-4.0); LYMPH # 1.7 10*3/uL (1.3-4.4); LYMPH % 41.7 % (27.0-41.0); MEAN CELL VOLUME 87.7 fl (81.0-99.0); MEAN CORPUSCULAR HGB 26.1 pg (27.0-31.0); MEAN CORPUSCULAR HGB CONC 29.7 g/dl (33.0-37.0); MEAN PLATELET VOLUME 9.1 fl (9.6-12.3); MONO # 0.4 10*3/uL (0.1-1.0); MONO % 9.6 % (3.0-9.0); NEUT # 1.9 10*3/uL (2.3-7.9); NEUT % 47.2 % (47.0-73.0); PLATELET COUNT AUTOMATED 166 10*3/uL (130-400); RED BLOOD COUNT 3.99 10*6/uL (4.10-5.10)
[2023-03-15 14:59] LABS: POTASSIUM 3.7 mmol/L (3.4-5.1); TOTAL PROTEIN 6.8 gm/dL (6.0-8.0)
[2023-03-15 15:53] VITALS: BP 110/52
[2023-03-15 16:31] LABS: BILIRUBIN Negative (Negative); BLOOD Negative (Negative); CLARITY Clear (Clear); COLOR Yellow (Yellow); GLUCOSE Negative (Negative); KETONE Trace (Negative); LEUKO ESTERASE Negative (Negative); NITRITE Negative (Negative); PH 5.5 (4.5-8.0); SPECIFIC GRAVITY 1.025 (1.001-1.030)
[2023-03-15 16:41] LABS: FINE GRANULAR CAST 0-2; MUCOUS 2+
[2023-03-15] MEDS ORDERED: SEPTDS PO (16:59)
== END 2023-03-15 17:56 | disposition home or self-care (01) ==
LOC: ED 14:01
PROVIDERS: Student in an Organized Health Care Education/Training Program
DX: N30.00 Acute cystitis without hematuria (principal); Z74.09 Other reduced mobility; I25.10 Atherosclerotic heart disease of native coronary artery without angina pectoris; F41.9 Anxiety disorder, unspecified; M19.90 Unspecified osteoarthritis, unspecified site; E78.00 Pure hypercholesterolemia, unspecified; D64.9 Anemia, unspecified; I10 Essential (primary) hypertension; Z88.0 Allergy status to penicillin; Z90.710 Acquired absence of both cervix and uterus; Z87.442 Personal history of urinary calculi; Z90.49 Acquired absence of other specified parts of digestive tract

== ENCOUNTER 2023-05-29 15:37 | Inpatient (IN) | payer MEDICARE, BC, OTHER ==
[~2023-05-29] VITALS: Ht 165.1 cm; Wt 84.5 kg
[~2023-05-29 15:37] MED LIST changes: +SEPTDS PO
[2023-05-29 16:16] LABS: BASO % 0.3 % (0.0-1.0); EOS % 0.1 % (1.0-4.0); HEMATOCRIT 34.9 % (37.0-47.0); LYMPH # 1.1 10*3/uL (1.3-4.4); LYMPH % 14.5 % (27.0-41.0); MEAN CELL VOLUME 91.1 fl (81.0-99.0); MEAN CORPUSCULAR HGB 29.2 pg (27.0-31.0); MEAN CORPUSCULAR HGB CONC 32.1 g/dl (33.0-37.0); MEAN PLATELET VOLUME 8.6 fl (9.6-12.3); MONO # 0.9 10*3/uL (0.1-1.0); MONO % 12.2 % (3.0-9.0); NEUT # 5.5 10*3/uL (2.3-7.9); NEUT % 72.6 % (47.0-73.0); NUCLEATED RED BLOOD CELL 0.1 10*3/uL (0.0-0.0); NUCLEATED RED BLOOD CELL 0.9 % (0.0-0.0); PLATELET COUNT AUTOMATED 231 10*3/uL (130-400); RED BLOOD COUNT 3.83 10*6/uL (4.10-5.10); RED CELL DISTRI WIDTH 19.3 % (0-14.5); WHITE BLOOD COUNT 7.6 10*3/uL (4.8-10.8)
[2023-05-29 16:31] LABS: ACT PARTIAL THROMBO TIME 28.8 SECONDS (20.0-32.1); INTERNATIONAL NORM RATIO 1.1 (2.0-3.5)
[2023-05-29 16:45] LABS: ALKALINE PHOSPHATASE 98 U/L (46-116); BUN 12 mg/dl (9-23); CHLORIDE 103 mmol/L (98-107); LIPASE 20 U/L (12-53); POTASSIUM 3.3 mmol/L (3.4-5.1); SGPT/ALT 12 U/L (10-49); TOTAL PROTEIN 6.7 gm/dL (6.0-8.0)
[2023-05-29 16:48] VITALS: BP 175/106
[2023-05-29 17:00] VITALS: BP 152/93
[2023-05-29 17:30] LABS: BILIRUBIN Negative (Negative); BLOOD Negative (Negative); CLARITY Cloudy (Clear); COLOR Yellow (Yellow); GLUCOSE Negative (Negative); KETONE 1+ (Negative); LEUKO ESTERASE Negative (Negative); NITRITE Negative (Negative); PH 5.5 (4.5-8.0)
[2023-05-29 17:43] LABS: BACTERIA 4+; EPITHELIAL CELLS 0-2; RBC 0-2 rbc/hpf (0-2)
[2023-05-29 18:40] VITALS: BP 184/87
[2023-05-29 20:09] VITALS: BP 190/88
[2023-05-30] VITALS (12 sets, daily range): BP systolic 128–193; BP diastolic 50–99
[2023-05-30 06:32] LABS: HEMATOCRIT 32.1 % (37.0-47.0); MEAN CELL VOLUME 89.7 fl (81.0-99.0); MEAN CORPUSCULAR HGB 29.6 pg (27.0-31.0); NUCLEATED RED BLOOD CELL 0.1 10*3/uL (0.0-0.0); NUCLEATED RED BLOOD CELL 1.2 % (0.0-0.0); PLATELET COUNT AUTOMATED 206 10*3/uL (130-400); RED BLOOD COUNT 3.58 10*6/uL (4.10-5.10); RED CELL DISTRI WIDTH 19.1 % (0-14.5); WHITE BLOOD COUNT 5.9 10*3/uL (4.8-10.8)
[2023-05-30 06:34] LABS: MANUAL DIFF REFLEX YES
[2023-05-30 06:56] LABS: BUN 9 mg/dl (9-23); CHLORIDE 102 mmol/L (98-107); POTASSIUM 3.1 mmol/L (3.4-5.1)
[2023-05-30 07:13] LABS: FREE T4 1.13 ng/dl (0.89-1.76)
[2023-05-30 07:25] LABS: TOTAL CELLS COUNTED 100 #CELLS
[2023-05-30 07:26] LABS: ABG BASE EXCESS 3.3 mmol/L (-2.0-2.0); ARTERIAL BLOOD GAS PH 7.504 (7.35-7.45); ARTERIAL BLOOD GAS PO2 74.4 (80-90)
[2023-05-30 07:26] LABS: PLATELET SUFFICIENCY NORMAL (NORMAL); POLYCHROMASIA MODERATE
[2023-05-30 07:50] LABS: VITAMIN D, 25-HYDROXY 72.8 ng/mL (30-100)
[2023-05-31] VITALS: BP 153/85
[2023-05-31 06:56] LABS: BASO % 0.2 % (0.0-1.0); EOS % 0.5 % (1.0-4.0); HEMATOCRIT 35.9 % (37.0-47.0); LYMPH # 1.3 10*3/uL (1.3-4.4); LYMPH % 22.4 % (27.0-41.0); MEAN CELL VOLUME 92.3 fl (81.0-99.0); MEAN CORPUSCULAR HGB 29.6 pg (27.0-31.0); MEAN PLATELET VOLUME 9.2 fl (9.6-12.3); MONO # 0.7 10*3/uL (0.1-1.0); MONO % 11.9 % (3.0-9.0); NEUT # 3.8 10*3/uL (2.3-7.9); NEUT % 64.7 % (47.0-73.0); NUCLEATED RED BLOOD CELL 0.1 10*3/uL (0.0-0.0); NUCLEATED RED BLOOD CELL 0.9 % (0.0-0.0); PLATELET COUNT AUTOMATED 215 10*3/uL (130-400); RED BLOOD COUNT 3.89 10*6/uL (4.10-5.10); RED CELL DISTRI WIDTH 19.5 % (0-14.5); WHITE BLOOD COUNT 5.8 10*3/uL (4.8-10.8)
[2023-05-31 07:17] LABS: BUN 9 mg/dl (9-23); CHLORIDE 97 mmol/L (98-107); POTASSIUM 3.1 mmol/L (3.4-5.1)
[2023-05-31 08:00] VITALS: BP 147/85
[2023-05-31 12:00] VITALS: BP 153/88
[2023-05-31 20:00] VITALS: BP 156/96
[2023-06-01 00:30] VITALS: BP 158/102
[2023-06-01 07:19] LABS: BASO % 0.2 % (0.0-1.0); EOS # 0.1 10*3/uL (0.0-0.4); EOS % 0.9 % (1.0-4.0); HEMATOCRIT 37.3 % (37.0-47.0); LYMPH # 1.8 10*3/uL (1.3-4.4); LYMPH % 30.8 % (27.0-41.0); MEAN CORPUSCULAR HGB 29.7 pg (27.0-31.0); MEAN CORPUSCULAR HGB CONC 31.9 g/dl (33.0-37.0); MEAN PLATELET VOLUME 9.4 fl (9.6-12.3); MONO # 0.7 10*3/uL (0.1-1.0); MONO % 12.8 % (3.0-9.0); NEUT # 3.1 10*3/uL (2.3-7.9); NEUT % 54.9 % (47.0-73.0); NUCLEATED RED BLOOD CELL 0.7 % (0.0-0.0); PLATELET COUNT AUTOMATED 216 10*3/uL (130-400); RED BLOOD COUNT 4.01 10*6/uL (4.10-5.10); RED CELL DISTRI WIDTH 19.1 % (0-14.5); WHITE BLOOD COUNT 5.7 10*3/uL (4.8-10.8)
[2023-06-01 07:50] LABS: BUN 11 mg/dl (9-23); CHLORIDE 93 mmol/L (98-107); POTASSIUM 2.9 mmol/L (3.4-5.1)
[2023-06-01 08:00] VITALS: BP 146/80
[2023-06-01 12:00] VITALS: BP 126/84
[2023-06-01 16:00] VITALS: BP 160/89
[2023-06-01 20:00] VITALS: BP 156/92
[2023-06-02] VITALS: BP 118/62
[2023-06-02 07:34] LABS: BASO % 0.4 % (0.0-1.0); EOS # 0.1 10*3/uL (0.0-0.4); EOS % 1.3 % (1.0-4.0); HEMATOCRIT 38.1 % (37.0-47.0); LYMPH # 1.9 10*3/uL (1.3-4.4); LYMPH % 34.8 % (27.0-41.0); MEAN CELL VOLUME 93.2 fl (81.0-99.0); MEAN CORPUSCULAR HGB 29.6 pg (27.0-31.0); MEAN CORPUSCULAR HGB CONC 31.8 g/dl (33.0-37.0); MEAN PLATELET VOLUME 9.7 fl (9.6-12.3); MONO # 0.6 10*3/uL (0.1-1.0); MONO % 11.6 % (3.0-9.0); NEUT # 2.8 10*3/uL (2.3-7.9); NEUT % 51.4 % (47.0-73.0); NUCLEATED RED BLOOD CELL 0.4 % (0.0-0.0); PLATELET COUNT AUTOMATED 219 10*3/uL (130-400); RED BLOOD COUNT 4.09 10*6/uL (4.10-5.10); RED CELL DISTRI WIDTH 18.7 % (0-14.5); WHITE BLOOD COUNT 5.5 10*3/uL (4.8-10.8)
[2023-06-02 08:00] VITALS: BP 133/72
[2023-06-02 08:39] LABS: BUN 11 mg/dl (9-23); CHLORIDE 96 mmol/L (98-107); POTASSIUM 3.3 mmol/L (3.4-5.1)
[2023-06-02 12:00] VITALS: BP 121/87
[2023-06-02 16:00] VITALS: BP 103/62
[2023-06-02 20:00] VITALS: BP 114/67
[2023-06-03] VITALS: BP 102/64
[2023-06-03 07:14] LABS: BUN 16 mg/dl (9-23); CHLORIDE 95 mmol/L (98-107); POTASSIUM 3.8 mmol/L (3.4-5.1)
[2023-06-03 08:00] VITALS: BP 140/69
[2023-06-03 12:00] VITALS: BP 132/55
[2023-06-03 16:00] VITALS: BP 94/64
[2023-06-03 20:00] VITALS: BP 102/53
[2023-06-04] VITALS: BP 107/76
[2023-06-04 08:00] VITALS: BP 130/65
[2023-06-04] MEDS ORDERED: RIVASTIGMINE T1.5 M1 PO (14:36)
[2023-06-04] MEDS ORDERED: LISINOPRIL20 MG PO (14:36)
[2023-06-04] MEDS ORDERED: NYAMYC15 GM T (14:36)
[2023-06-04] MEDS ORDERED: GABAPENTIN100 M2 PO (14:39)
== END 2023-06-04 16:15 | DRG 871 ==
LOC: ED 15:37 → EDHOLD 18:36 → 5E 18:36
PROVIDERS: Emergency Medicine; Family Medicine; Internal Medicine; Student in an Organized Health Care Education/Training Program; ADMIT Family Medicine; ATTEND Family Medicine
DX: A41.9 Sepsis, unspecified organism (principal); G93.41 Metabolic encephalopathy; I63.9 Cerebral infarction, unspecified; E44.0 Moderate protein-calorie malnutrition; N39.0 Urinary tract infection, site not specified; I16.1 Hypertensive emergency; D64.9 Anemia, unspecified; Z20.822 Contact with and (suspected) exposure to COVID-19; E83.42 Hypomagnesemia; E78.5 Hyperlipidemia, unspecified; R73.9 Hyperglycemia, unspecified; K57.30 Diverticulosis of large intestine without perforation or abscess without bleeding; R29.704 NIHSS score 4; Z96.643 Presence of artificial hip joint, bilateral; E87.6 Hypokalemia; J01.90 Acute sinusitis, unspecified; J44.9 Chronic obstructive pulmonary disease, unspecified; F03.90 Unspecified dementia, unspecified severity, without behavioral disturbance, psychotic disturbance, mood disturbance, and anxiety; F41.1 Generalized anxiety disorder; I11.9 Hypertensive heart disease without heart failure; Z88.0 Allergy status to penicillin; Z88.2 Allergy status to sulfonamides; Z88.8 Allergy status to other drugs, medicaments and biological substances; Z79.82 Long term (current) use of aspirin; Z90.710 Acquired absence of both cervix and uterus; I25.2 Old myocardial infarction; Z90.49 Acquired absence of other specified parts of digestive tract; Z82.49 Family history of ischemic heart disease and other diseases of the circulatory system; Z84.89 Family history of other specified conditions; Z68.31 Body mass index [BMI] 31.0-31.9, adult

== ENCOUNTER 2023-06-05 16:02 | Emergency (ER) | payer MEDICARE, BC, OTHER ==
[~2023-06-05] VITALS: Ht 167.6 cm; Wt 86.2 kg
[~2023-06-05 16:02] MED LIST changes: +NYAMYC15 GM T; +RIVASTIGMINE T1.5 M1 PO
[2023-06-05 16:48] LABS: ACT PARTIAL THROMBO TIME 25.2 SECONDS (20.0-32.1); INTERNATIONAL NORM RATIO 1.1 (2.0-3.5)
[2023-06-05 16:57] LABS: POTASSIUM 3.8 mmol/L (3.4-5.1); TOTAL PROTEIN 7.4 gm/dL (6.0-8.0)
[2023-06-05 18:50] LABS: BASO % 0.3 % (0.0-1.0); EOS % 0.2 % (1.0-4.0); HEMATOCRIT 45.6 % (37.0-47.0); LYMPH # 1.8 10*3/uL (1.3-4.4); LYMPH % 11.6 % (27.0-41.0); MEAN CORPUSCULAR HGB 29.8 pg (27.0-31.0); MEAN CORPUSCULAR HGB CONC 28.9 g/dl (33.0-37.0); MEAN PLATELET VOLUME 10.7 fl (9.6-12.3); MONO # 0.9 10*3/uL (0.1-1.0); NEUT # 12.4 10*3/uL (2.3-7.9); NEUT % 81.1 % (47.0-73.0); NUCLEATED RED BLOOD CELL 0.1 10*3/uL (0.0-0.0); NUCLEATED RED BLOOD CELL 0.5 % (0.0-0.0); PLATELET COUNT AUTOMATED 210 10*3/uL (130-400); RED BLOOD COUNT 4.43 10*6/uL (4.10-5.10); RED CELL DISTRI WIDTH 18.6 % (0-14.5); WHITE BLOOD COUNT 15.2 10*3/uL (4.8-10.8)
[2023-06-05 18:51] LABS: MEAN CELL VOLUME 102.9 fl (81.0-99.0)
[2023-06-05 19:30] LABS: BILIRUBIN Negative (Negative); BLOOD 1+ (Negative); CLARITY Cloudy (Clear); COLOR Yellow (Yellow); GLUCOSE Negative (Negative); KETONE Negative (Negative); LEUKO ESTERASE 1+ (Negative); NITRITE Negative (Negative); SPECIFIC GRAVITY 1.015 (1.001-1.030)
[2023-06-05 19:38] LABS: BACTERIA 1+; EPITHELIAL CELLS 16-20; MUCOUS 1+
[2023-06-05 19:48] LABS: ABG BASE EXCESS -4.7 mmol/L (-2.0-2.0); ARTERIAL BLOOD GAS PH 7.337 (7.35-7.45); ARTERIAL BLOOD GAS PO2 287.5 (80-90)
[2023-06-06 00:02] LABS: ABG BASE EXCESS -4.6 mmol/L (-2.0-2.0); ARTERIAL BLOOD GAS PH 7.389 (7.35-7.45); ARTERIAL BLOOD GAS PO2 86.1 (80-90)
[2023-06-06 05:04] VITALS: BP 102/62; BP 103/41; BP 104/45; BP 105/48; BP 111/47; BP 113/56; BP 114/53; BP 114/64; BP 118/55; BP 123/46; BP 124/54; BP 128/41; BP 129/45; BP 93/58
[2023-06-06 10:57] VITALS: BP 93/47
[2023-06-06 11:43] LABS: VENOUS PH 7.243 (7.37-7.45)
== END 2023-06-06 11:45 | disposition short-term general hospital (02) ==
LOC: ED 16:02
PROVIDERS: Emergency Medicine; Internal Medicine; Nurse Practitioner
DX: R65.21 Severe sepsis with septic shock (principal); N17.9 Acute kidney failure, unspecified; R77.8 Other specified abnormalities of plasma proteins; E87.20 Acidosis, unspecified; J96.00 Acute respiratory failure, unspecified whether with hypoxia or hypercapnia; I25.10 Atherosclerotic heart disease of native coronary artery without angina pectoris; I25.2 Old myocardial infarction; I10 Essential (primary) hypertension; F41.9 Anxiety disorder, unspecified; M19.90 Unspecified osteoarthritis, unspecified site; E78.00 Pure hypercholesterolemia, unspecified; D64.9 Anemia, unspecified; Z88.0 Allergy status to penicillin; Z87.442 Personal history of urinary calculi; Z90.710 Acquired absence of both cervix and uterus; Z98.890 Other specified postprocedural states; Z90.49 Acquired absence of other specified parts of digestive tract; Z95.5 Presence of coronary angioplasty implant and graft